=== PATIENT | female | born 1975 | race Asian ===

== ENCOUNTER 2018-06-02 21:31 | Emergency (ER) | payer MEDICAID ==
[~2018-06-02] VITALS: Ht 160 cm; Wt 64.0 kg
[2018-06-02 21:49] VITALS: Ht 160 cm; Wt 64.0 kg
[2018-06-02 23:38] LABS: BASOPHIL % 0.4 % (0-2); PLATELET COUNT 218 x10^3mcL (130-400); RED CELL DISTRIBUTION WIDTH 12.4 % (11.5-14.5)
[2018-06-02 23:46] LABS: CARBON DIOXIDE 26.4 mmol/L (21-32); CHLORIDE SERUM 100 mmol/L (98-107); CREATININE SERUM 0.7 mg/dL (0.6-1.0); GFR1 > 60 mL/min; GLUCOSE SERUM 109 mg/dL (74-106); SODIUM SERUM 135 mmol/L (136-145)
[2018-06-02 23:51] LABS: ALBUMIN 3.7 g/dL (3.4-5.0); ALKALINE PHOSPHATASE 61 U/L (46-116); ALT/SGPT 83 U/L (14-59); AST/SGOT 54 U/L (15-37); BILIRUBIN TOTAL 0.3 mg/dL (0.20-1.00)
[2018-06-02 23:55] LABS: TOTAL PROTEIN, SERUM 8.8 g/dL (6.4-8.2)
[2018-06-03 00:27] VITALS: BP 127/85
== END 2018-06-03 00:27 | disposition home or self-care (01) ==
LOC: ED 21:31
PROVIDERS: Specialist
DX: J10.1 Influenza due to other identified influenza virus with other respiratory manifestations (principal); L50.9 Urticaria, unspecified; Z98.890 Other specified postprocedural states
CPT/HCPCS: 36415; 87804

== ENCOUNTER 2018-07-01 17:32 | Emergency (ER) | payer MEDICAID ==
[~2018-07-01] VITALS: Ht 160 cm; Wt 61.9 kg
[2018-07-01 17:57] VITALS: Ht 160 cm; Wt 61.9 kg
[2018-07-01 20:19] VITALS: BP 122/91
== END 2018-07-01 20:20 | disposition home or self-care (01) ==
LOC: ED 17:32
DX: L50.9 Urticaria, unspecified (principal); Z98.890 Other specified postprocedural states
CPT/HCPCS: J7512